=== PATIENT | female | born 1980 | race Two or more races ===

== ENCOUNTER 2025-06-21 17:19 | Emergency (ER) | payer BC, SELFPAY ==
[2025-06-21 17:27] VITALS: BP 137/70; PULSE 76; TEMP 36.7; O2SAT 98; BMI 41.1
--- OUTSIDE RECORDS SUMMARY | 2025-06-21 17:51 | XMS_ITS | Encounter Summary ---
Author Organization [facility] Address [id number] [address] [place] [address] Care Team Providers Care Plant Manager Name Role Phone Edgard Garduno DO Primary Care Provider [phone] Encounter Details Date Type Department Care Team ([facility] st Contact Info) Description 11/08/2021 Telephone [facility] [address] [place] [id number] Tess Prasad MA Social History Tobacco Use Types Packs/Day Years Used Date Smoking Tobacco: Every Day Cigarettes Smokeless Tobacco: Never Alcohol Use Standard Drinks/Week Comments Yes 0 (1 standard drink = 0.6 oz pur e alcohol) occasional Childcare Answer Date Recorded Childcare Unknown 02/28/2019 Employment Answer Date Recorded Employment Unknown 02/28/2019 Comments No Sex and Gender Information Value Date Recorded Sex Assigned at Not on file Legal Sex Female 11:56 AM EDT Gender Identity Not on file Sexual Orientation Not on file COVID-19 Exposure Response Date Recorded In the last month, have you been in contact with someone who was confirmed or suspected to have Coronavirus / COVID-19? No / Unsure 11/06/2021 9:47 AM EST documented as of this encounter Miscellaneous Notes * Telephone Encounter - Tess Prasad MA - 11/08/2021 11:51 AM EST D&C,Hysteroscopy,Endometrial Ablation: December @ 9am with Dr[address] Muñiz PAT: November @ 9am COVID: December @ 9am Called and left VM for patient to return call. PT RETURNED PHONE CALL, PT AWARE OF DATES AND TIMES documented in this encounter Plan of Treatment Not on file documented as of this encounter Visit Diagnoses Not on filedocumented in this encounter Care Teams Plant Manager Relationship Specialty Start Date End Date Edgard Garduno DO PCP - General Family Medicine 08/29/21 documented as of this encounter
--- NOTE | 2025-06-21 19:23 | ED.ABDPAIN1 ---
HPI - Abdominal Pain General Chief Complaint: Abdominal Pain Stated Complaint: HERNIA Time Seen by Provider: 06/21/25 18:42 Source: patient Mode of arrival: walk-in History of Present Illness HPI narrative: presents complaining of abdominal pain which she feels is from her umbilical hernia. Pain for past 3 days. No fever, chills, nausea or diarrhea. No urinary symptoms. Points to her umbilicus as the site of pain Related Data Allergies Allergy/AdvReac Type Severity Reaction Status Date / Time sumatriptan (From Imitrex) Allergy Severe Anaphylaxis Verified 06/21/25 17:30 Review of Systems ROS Status of ROS 10 or more systems reviewed and unremarkable except as noted in history and below PFSH PFSH Social History Little interest or pleasure in doing things: not at all Feeling down, depressed, or hopeless: not at all Exam Constitutional Vital Signs, click to edit/add: Last Vital Signs Temp 98.0 F 06/21/25 17:27 Pulse 51 L 06/21/25 20:50 Resp 18 06/21/25 20:50 BP 151/92 H 06/21/25 22:40 Pulse Ox 98 06/21/25 22:40 O2 Del Method Room Air 06/21/25 17:27 Common normals: no apparent distress, average body habitus, oriented x3, no limitations, healthy appearing, alert and well nourished [facility] Common normals: normocephalic, head/scalp atraumatic and hearing grossly normal bilaterally Eye Common normals: EOMs intact bilaterally and conjunctivae normal Respiratory Common normals: normal respiratory effort, no retractions, no use of accessory muscles and clear to auscultation bilaterally Cardio Common normals: regular rate, regular rhythm, S1 normal heart sound and S2 normal heart sound GI Common normals: Normal to inspection, nondistended, normoactive bowel sounds present, soft to palpation and non-tender Extremity Common normals: normal to inspection and full ROM Neuro Common normals: oriented x3, CN's II-XII intact bilaterally and moves all extremities Psych Appearance: grossly normal Course Vital Signs Vital signs: Vital Signs Temperature 98.0 F 06/21/25 17:27 Pulse Rate 76 06/21/25 17:27 Respiratory Rate 16 06/21/25 17:27 Blood Pressure 137/70 06/21/25 17:27 Pulse Oximetry 98 06/21/25 17:27 Oxygen Delivery Method Room Air 06/21/25 17:27 Temperature 98.0 F 06/21/25 17:27 Pulse Rate 51 L 06/21/25 20:50 Respiratory Rate 18 06/21/25 20:50 Blood Pressure 151/92 H 06/21/25 22:40 Pulse Oximetry 98 06/21/25 22:40 Oxygen Delivery Method Room Air 06/21/25 17:27 MDM - Abdominal Pain MDM Narrative Medical decision making narrative: presents complaining of umbilical pain for past 3 days. states hernia in place for at least 15 years after she had tubal ligation but never had any significant problem with it until he past 3 days. no vomiting or fever. CT with fat containing umbilicalhernia with inflammatory changes of the mesentery and small amount of inflammatory fluid. No entrapment of bowel. No strangulation of bowel Discussed with Gen.Surgeon Dr Page at [facility] and he will not be able to accept the patient because he gets off in 2 hours. Her last meal was 3pm but she has been drinking water all day. He suggest attempt to reduce the hernia and if not successful Transfer to [facility] patient medicated with dilaudid. I was then able to manipulate the umbical site but no definite confromation of reduction. Patient then observed in the ED for another hour. [facility] and return stating it defintiely felt better and she was requesting discharge. Given discharge instructions to follow up With Dr Page Lab Data Labs: Lab Results 06/21/25 06/21/25 Range/Units 20:15 20:18 WBC 8.5 (4.0-11.0) 10^3/uL RBC 4.40 (4.20-5.40) 10^6/uL Hgb 13.6 (12.0-16.0) g/dL Hct 40.6 (36.0-48.0) % MCV 92.3 (81.0-99.0) fL MCH 30.9 (26.7-34.0) pg MCHC 33.5 (29.9-35.2) g/dL RDW 13.4 (11.0-15.0) % Plt Count 334 (150-450) 10^3/uL MPV 10.5 (9.5-13.5) fL Neut % (Auto) 56.9 (43.0-75.0) % Lymph % (Auto) 31.1 (20.5-60.0) % [place] % (Auto) 7.3 (1.7-12.0) % Eos % (Auto) 3.8 (0.9-7.0) % Baso % (Auto) 0.5 (0.2-2.0) % Neut # (Auto) 4.8 (1.4-6.5) 10^3/uL Lymph # (Auto) 2.6 (1.2-3.8) 10^3/uL [place] # (Auto) 0.6 (0.3-0.8) 10^3/uL Eos # (Auto) 0.3 (0.0-0.7) 10^3/uL Baso # (Auto) 0.0 (0.0-0.1) 10^3/uL Abs Immat Gran (auto) 0.03 (0.00-0.03) 10^3/uL Imm/Tot Granulo (auto) 0.4 (0.0-0.5) % Sodium 137 (136-145) mmol/L Potassium 4.4 (3.5-5.1) mmol/L Chloride 102 (98-107) mmol/L Carbon Dioxide 28.8 (21.0-32.0) mmol/L Anion Gap 10.6 BUN 11.0 (7.0-18.0) mg/dL Creatinine 0.72 (0.55-1.02) mg/dL Est GFR ( Amer) >60 (>=60 mL/min/1.73m^2) Est GFR (Non-Af Amer) >60 (>=60 mL/min/1.73m^2) BUN/Creatinine Ratio 15.3 Glucose 87 (74-106) mg/dL Lactate 0.6 (0.4-2.0) mmol/L Calcium 9.4 (8.5-10.1) mg/dL Total Bilirubin 0.2 (0.2-1.0) mg/dL AST 10 L (15-37) U/L ALT 24 (14-59) U/L Alkaline Phosphatase 63 (46-116) U/L Total Protein 8.0 (6.4-8.2) g/dL Albumin 3.8 (3.4-5.0) g/dL Globulin 4.2 g/dL Albumin/Globulin Ratio 0.9 Lipase 36.0 (16.0-77.0) U/L Urine Color Lt. yellow (YELLOW) Urine Clarity Clear (CLEAR) Urine pH 6.5 (5.0-9.0) Ur Specific [place] <=1.005 A (1.005-1.025) Urine Protein Negative (NEG/TRACE) mg/dL Urine Glucose (UA) Negative (NEGATIVE) mg/dL Urine Ketones Negative (NEGATIVE) mg/dL Urine Occult Blood Negative (NEGATIVE) Urine Nitrite Negative (NEGATIVE) Urine Bilirubin Negative (NEGATIVE) Urine Urobilinogen 0.2 (0.2-1.0) EU/dL Ur Leukocyte Esterase Negative (NEGATIVE) Urine RBC 0-2 (0-2) #/HPF Urine WBC 0-2 A (NONE SEEN) #/HPF Ur Squamous Epith Cells Rare (NONE/RARE) #/LPF Urine Crystals None seen (None Seen) #/HPF Urine Bacteria Trace A (NONE SEEN) #/HPF Urine Casts None seen (NONE SEEN) #/LPF Urine Mucus None seen (NONE SEEN) Discharge Plan Discharge Chief Complaint: Abdominal Pain Clinical Impression: Hernia, umbilical Patient Disposition: Home, Self-Care Print Language: British Instructions: Umbilical Hernia (ED) Additional Instructions: contact [facility]. Surgery office Dr Page to schedule an appointment later this week or next week. return if pain recurs Referrals: LILIYA BLACK [Primary Care Provider] - 1 week
--- NOTE | 2025-06-21 19:25 | CT_ITS ---
The [address] [address] Patient Name: LIZETTE KO MRN: [id number] date: 1980 Sex: F Assigned Patient Location: ER Current Patient Location: ER Accession/Order Number: [id number] Exam Date: 06/21/2025 20:36 Report Date: 06/21/2025 21:10 At the request of: DANIELLA IZAGUIRRE MD Procedure: CT abdomen pelvis w con CT Abdomen and Pelvis withcontrast TECHNIQUE: Axial imaging with 2-D reconstruction. The CT exam was performed using one or more the following dose reduction techniques: Automated exposure control, adjustment of the MA and/or Kv according to patient size, or use of the iterative reconstruction technique. COMPARISON: None History: Umbilical hernia LIMITATIONS: None LOWER THORAX Unremarkable LIVER: Unremarkable GALLBLADDER: No gallbladder abnormality identified. BILE DUCTS: No dilatation SPLEEN: Unremarkable PANCREAS: Unremarkable ADRENAL GLANDS: Unremarkable KIDNEYS:Unremarkable AORTA: No abdominal aortic aneurysm identified. RETROPERITONEUM: No significant retroperitoneal abnormalities identified. MESENTERY:Unremarkable STOMACH:Unremarkable SMALL BOWEL: The small bowel loops are nondistended. APPENDIX: The appendix is normal. COLON: Unremarkable URINARY BLADDER: Urinary bladder is unremarkable. REPRODUCTIVE SYSTEM: Reproductive structures are unremarkable. PNEUMOPERITONEUM: None PERITONEAL FLUID:None BONY STRUCTURES: Lower lumbar degenerative change ABDOMINAL WALL: Fat-containing umbilical hernia identified. Edematous changes of mesentery. Small fluid collection. No entrapment or strangulation of bowel. Opening measures up to 2.8 cm. The hernia measures 5.[address]/CT abdomen pelvis w con IMPRESSION: Fat-containing umbilical hernia with inflammatory changes of the mesentery and small amount of fluid likely inflammatory. No entrapment of bowel. No strangulation of bowel. No bowel obstruction. Impression dictated by: Gee Bee M.D. 06/21/2025 9:10 PM Dictation Location: [employer] Electronically authenticated by: [id number] Y Date: 06/21/2025 21:10
[2025-06-21] MEDS: 0.9 % SODIUM CHLORIDE 1,000 ML 999 ML IV (20:21)
[2025-06-21 20:32] LABS: Glucose Urine UA NEGATIVE (NEGATIVE)
[2025-06-21 20:33] LABS: Hematocrit 40.6 % (36.0-48.0); Hemoglobin 13.6 g/dL (12.0-16.0); Immature Granulocytes Abs Auto 0.03 10^3/uL (0.00-0.03); Immature Granulocytes Pct Auto 0.4 % (0.0-0.5); Lymphocytes Absolute Auto 2.6 10^3/uL (1.2-3.8); Mean Corpuscular HGB Conc 33.5 g/dL (29.9-35.2); Mean Corpuscular Hemoglobin 30.9 pg (26.7-34.0); Mean Corpuscular Volume 92.3 fL (81.0-99.0); Platelet Count 334 10^3/uL (150-450); Red Blood Count 4.40 10^6/uL (4.20-5.40); White Blood Count 8.5 10^3/uL (4.0-11.0)
[2025-06-21 20:38] LABS: Cast Seen? NONE SEEN #/LPF (NONE SEEN); Crystals Seen? None Seen #/HPF (None Seen)
[2025-06-21 20:46] LABS: Alanine Aminotransferase 24 U/L (14-59); Albumin Globulin Ratio 0.9; Albumin Level 3.8 g/dL (3.4-5.0); Alkaline Phosphatase 63 U/L (46-116); Anion Gap 10.6; Aspartate Amino Transferase 10 U/L (15-37); Blood Urea Nitrogen 11.0 mg/dL (7.0-18.0); Calcium 9.4 mg/dL (8.5-10.1); Carbon Dioxide 28.8 mmol/L (21.0-32.0); Chloride 102 mmol/L (98-107); Estimated GFR (African America >60 (>=60 mL/min/1.73m^2); Estimated GFR (Non-African Ame >60 (>=60 mL/min/1.73m^2); Globulin 4.2 g/dL; Glucose 87 mg/dL (74-106); Lipase 36.0 U/L (16.0-77.0); Potassium 4.4 mmol/L (3.5-5.1); Sodium 137 mmol/L (136-145); Total Protein 8.0 g/dL (6.4-8.2)
[2025-06-21 20:48] LABS: Lactate/Lactic Acid 0.6 mmol/L (0.4-2.0)
[2025-06-21 20:50] VITALS: BP 170/90; PULSE 51; O2SAT 99
[2025-06-21] MEDS: HYDROMORPHONE HCL 1 MG/ML CARTRIDGE IVP (22:00)
[2025-06-21 22:40] VITALS: BP 151/92; O2SAT 98
[2025-06-22 00:03] VITALS: BP 160/97; PULSE 64; O2SAT 94
== END 2025-06-22 00:14 | disposition home or self-care (01) ==
PROVIDERS: Emergency Provider Internal Medicine
DX: K42.9 Umbilical hernia without obstruction or gangrene (principal); Z98.51 Tubal ligation status
CPT/HCPCS: 36415; 74177; 80053; 81001; 83605; 83690; 85025; 96374; 99285; J1171; Q9967